=== PATIENT | male | born 1990 ===

== ENCOUNTER 2020-04-18 22:44 | Emergency (ER) | payer SELFPAY ==
[~2020-04-18] VITALS: Ht 170.2 cm; Wt 59.0 kg
[2020-04-18] MEDS ORDERED: AMOCLA875 PO (23:14)
== END 2020-04-18 23:35 | disposition home or self-care (01) ==
LOC: ER 22:44
DX: S41.051A Open bite of right shoulder, initial encounter (principal); Z23 Encounter for immunization; W54.0XXA Bitten by dog, initial encounter
CPT/HCPCS: 12032; 36415; 71045; 90471; 90714; 96365-59; 99283-25; G0480; J0690